=== PATIENT | female | born 1960 | race Asian ===

== ENCOUNTER 2018-05-24 15:03 | Inpatient (IN) | payer MEDICARE ==
[~2018-05-24] VITALS: Ht 152.4 cm; Wt 61.0 kg
[~2018-05-24 15:03] MED LIST: DULO60CA44 PO; QUET25TA PO
[2018-05-24] MEDS ORDERED: HALOPERIDOL 5 MG TABLET PO PRN (16:15)
[2018-05-24] MEDS: MEMANTINE HCL 10 MG TABLET PO SCH (17:00)
[2018-05-24] MEDS: RisperiDONE 0.5 MG TABLET PO SCH (17:00)
[2018-05-24] MEDS: ZOLPIDEM TARTRATE 10 MG TABLET PO PRN (20:12)
[2018-05-24] MEDS ORDERED: BENZOCAINE/MENTHOL LOZENGE MM PRN (20:30)
[2018-05-24] MEDS ORDERED: CloNIDine HCL 0.1 MG TABLET PO PRN (20:30)
[2018-05-24] MEDS ORDERED: ALBUTEROL SULFATE HFA 90 MCG/PUFF 8 GM INHALER IH PRN (20:30)
[2018-05-24] MEDS ORDERED: BACITRACIN 28.4 GM OINTMENT TP PRN (20:30)
[2018-05-24] MEDS ORDERED: MAG HYDROX/AL HYDROX/SIMETH ES 30 ML SUSPENSION UDCUP PO PRN (20:30)
[2018-05-24] MEDS ORDERED: ONDANSETRON HCL 4 MG TABLET PO PRN (20:30)
[2018-05-24] MEDS ORDERED: LOPERAMIDE HCL 2 MG CAPSULE PO PRN (20:30)
[2018-05-24] MEDS ORDERED: ACETAMINOPHEN 325 MG TABLET PO PRN (20:30)
[2018-05-24] MEDS ORDERED: MAGNESIUM HYDROXIDE SUSPENSION 30 ML UDCUP PO PRN (20:30)
[2018-05-24] MEDS ORDERED: PETROLATUM,WHITE 71 GM JELLY TP PRN (20:30)
[2018-05-24] MEDS ORDERED: IBUPROFEN 600 MG TABLET PO PRN (20:30)
[2018-05-24 21:10] LABS: BASOPHILS % (AUTO) 0.6 % (0.0-2.0); EOSINOPHILS % (AUTO) 0.4 % (1.0-6.0); HEMATOCRIT 36.9 % (36-46); HEMOGLOBIN 12.3 g/dL (12.0-16.0); LYMPHOCYTES # (AUTO) 2.2 K/uL (1.0-4.8); LYMPHOCYTES % (AUTO) 22.8 % (22.0-44.0); MEAN CORPUSCULAR HEMOGLOBIN 30.6 pg (26.0-34.0); MEAN CORPUSCULAR HGB CONC 33.4 G/dL (31.0-37.0); MEAN CORPUSCULAR VOLUME 92 fL (80-100); NEUTROPHILS # (AUTO) 6.5 K/uL (1.8-7.7); NEUTROPHILS % (AUTO) 66.2 % (40.0-70.0); PLATELET COUNT (AUTO) 242 K/uL (150-450); RED BLOOD CELL COUNT(AUTO) 4.02 MIL/uL (4.00-5.20); RED CELL DISTRIBUTION WIDTH 12.5 % (11.5-14.5)
[2018-05-24 21:22] LABS: ALANINE AMINOTRANSFERASE 17 U/L (12-78); ALBUMIN 3.3 g/dL (3.4-5.0); ALKALINE PHOSPHATASE 57 U/L (46-116); ANION GAP 7 mmol/L (8-16); ASPARTATE AMINOTRANSFERASE 17 U/L (15-37); BILIRUBIN,TOTAL 0.3 mg/dL (0.1-1.0); CALCIUM, TOTAL 9.4 mg/dL (8.8-10.5); CARBON DIOXIDE 31 mmol/L (22-29); CHLORIDE 104 mmol/L (98-107); CREATININE 0.93 mg/dL (0.60-1.30); GLOMERULAR FILTR. RATE CALC > 60 mL/min (>60); GLUCOSE,RANDOM 120 mg/dL (70-110); POTASSIUM 4.2 mmol/L (3.5-5.1); SODIUM SERUM 142 mmol/L (136-145); TOTAL PROTEIN, SERUM 7.3 g/dL (6.4-8.2); UREA NITROGEN, BLOOD 19 mg/dL (7-18)
[2018-05-25] MEDS: LORazepam 2 MG TABLET PO PRN (02:13)
[2018-05-25 09:00] VITALS: BP 118/73
[2018-05-25] MEDS: OMEPRAZOLE 20 MG CAPSULE PO SCH (09:00)
[2018-05-25] MEDS: MEMANTINE HCL 10 MG TABLET PO SCH ×2 (09:00→17:30)
[2018-05-25] MEDS: DOCUSATE SODIUM 100 MG CAPSULE PO SCH (09:00)
[2018-05-25] MEDS: RisperiDONE 0.5 MG TABLET PO SCH (17:30)
[2018-05-25 19:21] VITALS: BP 137/80
[2018-05-26] MEDS: OMEPRAZOLE 20 MG CAPSULE PO SCH (08:50)
[2018-05-26] MEDS: DOCUSATE SODIUM 100 MG CAPSULE PO SCH ×2 (08:50→18:14)
[2018-05-26] MEDS: MEMANTINE HCL 10 MG TABLET PO SCH ×2 (08:50→17:21)
[2018-05-26] MEDS: LORazepam 2 MG TABLET PO PRN (14:26)
[2018-05-26] MEDS: RisperiDONE 0.5 MG TABLET PO SCH (17:21)
[2018-05-26] MEDS: ZOLPIDEM TARTRATE 10 MG TABLET PO PRN (20:54)
[2018-05-27] MEDS: OMEPRAZOLE 20 MG CAPSULE PO SCH (09:00)
[2018-05-27] MEDS: MEMANTINE HCL 10 MG TABLET PO SCH ×2 (09:00→17:39)
[2018-05-27] MEDS: DOCUSATE SODIUM 100 MG CAPSULE PO SCH (12:15)
[2018-05-27] MEDS: RisperiDONE 0.5 MG TABLET PO SCH (17:39)
[2018-05-27] MEDS: SIMVASTATIN 10 MG TABLET PO SCH (23:06)
[2018-05-28] MEDS: MEMANTINE HCL 10 MG TABLET PO SCH ×2 (09:00→16:30)
[2018-05-28] MEDS: OMEPRAZOLE 20 MG CAPSULE PO SCH (09:00)
[2018-05-28] MEDS: RisperiDONE 0.5 MG TABLET PO SCH (16:30)
[2018-05-28 17:13] VITALS: BP 136/63
[2018-05-28] MEDS: SIMVASTATIN 10 MG TABLET PO SCH (21:00)
[2018-05-29 06:58] LABS: CHOL/HDL RATIO 4.9 (3.9-5.7); FREE T4 (FREE THYROXINE) 1.09 ng/dL (0.76-1.46); THYROID STIMULATING HORMONE 0.6 uIU/mL (0.36-3.74)
[2018-05-29] MEDS: OMEPRAZOLE 20 MG CAPSULE PO SCH (09:02)
[2018-05-29] MEDS: DOCUSATE SODIUM 100 MG CAPSULE PO SCH (09:02)
[2018-05-29] MEDS: MEMANTINE HCL 10 MG TABLET PO SCH ×2 (09:02→17:38)
[2018-05-29] MEDS: RisperiDONE 0.5 MG TABLET PO SCH (17:38)
[2018-05-29] MEDS: SIMVASTATIN 10 MG TABLET PO SCH (20:02)
[2018-05-30] MEDS: DOCUSATE SODIUM 100 MG CAPSULE PO SCH (09:02)
[2018-05-30] MEDS: OMEPRAZOLE 20 MG CAPSULE PO SCH (09:02)
[2018-05-30] MEDS: MEMANTINE HCL 10 MG TABLET PO SCH ×2 (09:02→17:32)
[2018-05-30] MEDS: RisperiDONE 0.5 MG TABLET PO SCH (17:32)
[2018-05-30] MEDS: SIMVASTATIN 10 MG TABLET PO SCH (21:15)
[2018-05-30 21:28] VITALS: BP 101/60
[2018-05-31 08:23] VITALS: BP 133/77
[2018-05-31] MEDS: MEMANTINE HCL 10 MG TABLET PO SCH ×2 (08:31→16:19)
[2018-05-31] MEDS: OMEPRAZOLE 20 MG CAPSULE PO SCH (08:31)
[2018-05-31] MEDS: DOCUSATE SODIUM 100 MG CAPSULE PO SCH (08:31)
[2018-05-31] MEDS: RisperiDONE 0.5 MG TABLET PO SCH (16:19)
[2018-05-31] MEDS: SIMVASTATIN 10 MG TABLET PO SCH (20:00)
[2018-05-31] MEDS: ZOLPIDEM TARTRATE 10 MG TABLET PO PRN (20:00)
[2018-05-31] MEDS: LORazepam 2 MG TABLET PO PRN (21:38)
[2018-06-01] MEDS: OMEPRAZOLE 20 MG CAPSULE PO SCH (08:25)
[2018-06-01] MEDS: DOCUSATE SODIUM 100 MG CAPSULE PO SCH (08:25)
[2018-06-01] MEDS: MEMANTINE HCL 10 MG TABLET PO SCH ×2 (08:25→16:13)
[2018-06-01] MEDS: RisperiDONE 0.5 MG TABLET PO SCH (16:13)
[2018-06-01] MEDS: SIMVASTATIN 10 MG TABLET PO SCH (21:00)
[2018-06-02] MEDS: OMEPRAZOLE 20 MG CAPSULE PO SCH (08:39)
[2018-06-02] MEDS: MEMANTINE HCL 10 MG TABLET PO SCH ×2 (08:39→16:06)
[2018-06-02] MEDS: DOCUSATE SODIUM 100 MG CAPSULE PO SCH (08:39)
[2018-06-02 09:00] VITALS: BP 127/86
[2018-06-02] MEDS: LORazepam 2 MG TABLET PO PRN (15:37)
[2018-06-02] MEDS: RisperiDONE 0.5 MG TABLET PO SCH (16:07)
[2018-06-02] MEDS: SIMVASTATIN 10 MG TABLET PO SCH (20:32)
[2018-06-03] MEDS: OMEPRAZOLE 20 MG CAPSULE PO SCH (08:41)
[2018-06-03] MEDS: MEMANTINE HCL 10 MG TABLET PO SCH ×2 (08:42→16:52)
[2018-06-03] MEDS: DOCUSATE SODIUM 100 MG CAPSULE PO SCH (08:42)
[2018-06-03] MEDS: LORazepam 2 MG TABLET PO PRN (11:28)
[2018-06-03] MEDS: RisperiDONE 0.5 MG TABLET PO SCH (16:52)
[2018-06-03] MEDS: SIMVASTATIN 10 MG TABLET PO SCH (23:54)
[2018-06-04] MEDS: OMEPRAZOLE 20 MG CAPSULE PO SCH (08:18)
[2018-06-04] MEDS: MEMANTINE HCL 10 MG TABLET PO SCH (08:18)
[2018-06-04] MEDS: DOCUSATE SODIUM 100 MG CAPSULE PO SCH (08:18)
[2018-06-04] MEDS ORDERED: RISP.5 PO (10:47)
[2018-06-04] MEDS ORDERED: MEMA10TA11 PO (10:47)
[2018-06-04] MEDS ORDERED: SIMV-259 PO (10:49)
[2018-06-04] MEDS ORDERED: OMEP20 PO (10:50)
[2018-06-04] MEDS ORDERED: DSS100 PO (10:50)
== END 2018-06-04 15:00 | DRG 881 ==
LOC: 3EX 15:30
PROVIDERS: ADMIT Psychiatry & Neurology Psychiatry; ATTEND Psychiatry & Neurology Psychiatry
DX: F32.9 Major depressive disorder, single episode, unspecified (principal); F03.91 Unspecified dementia, unspecified severity, with behavioral disturbance; E78.5 Hyperlipidemia, unspecified; F41.9 Anxiety disorder, unspecified; G47.00 Insomnia, unspecified; K59.00 Constipation, unspecified; Z87.820 Personal history of traumatic brain injury
CPT/HCPCS: 82607; 84439; 84443; 90686